=== PATIENT | female | born 2000 | race Caucasian/White ===

== ENCOUNTER → 2022-08-30 | Outpatient (REF) | LOC: M RAD 09:48 | PROVIDERS: ATTEND Internal Medicine | DX: R52 Pain, unspecified (principal) ==

== ENCOUNTER 2022-11-07 07:31 | Emergency (ER) | payer OTHER ==
[~2022-11-07] VITALS: Ht 157.5 cm; Wt 47.7 kg
[2022-11-07 09:28] VITALS: BP 117/72; TEMP 98.4; O2SAT 100
== END 2022-11-07 09:33 | disposition home or self-care (01) ==
LOC: M ED 07:31 → EDBD 07:31 → M ED 09:33
DX: T19.2XXA Foreign body in vulva and vagina, initial encounter (principal); F90.9 Attention-deficit hyperactivity disorder, unspecified type

== ENCOUNTER 2023-01-23 18:33 | Emergency (ER) | payer OTHER ==
[~2023-01-23] VITALS: Ht 157.5 cm; Wt 49.6 kg
[2023-01-23 18:34] VITALS: BP 121/66; TEMP 99; O2SAT 99
[2023-01-23 19:29] LABS: HEMATOCRIT 38.3 % (36.0-47.0); HEMOGLOBIN 12.7 g/dl (12.0-15.5); MEAN CORPUSCULAR HEMOGLOBIN 30.8 pg (27.0-33.0); MEAN CORPUSCULAR HGB CONC 33.2 g/dl (32.0-36.5); PLATELET COUNT, AUTOMATED 196 10^3/uL (150-450); RED BLOOD COUNT 4.12 10^6/uL (4.00-5.40); WHITE BLOOD COUNT 4.8 10^3/uL (4.0-10.0)
[2023-01-23 19:58] LABS: HCG, SERUM QUALITATIVE NEGATIVE (NEGATIVE)
[2023-01-23 20:01] LABS: BLOOD UREA NITROGEN 11 MG/DL (9-23); CALCIUM LEVEL 9.4 MG/DL (8.5-10.1); CARBON DIOXIDE LEVEL 30 MMOL/L (20-31); CHLORIDE LEVEL 104 MMOL/L (98-107); CREATININE FOR GFR 0.62 MG/DL (0.55-1.30); GLOMERULAR FILTRATION RATE > 60.0 (>60); GLUCOSE, FASTING 78 MG/DL (60-100); POTASSIUM SERUM 4.2 MMOL/L (3.5-5.1); SODIUM LEVEL 142 MMOL/L (136-145)
== END 2023-01-23 23:27 | disposition left against medical advice (07) ==
LOC: M ED 18:33
DX: Z53.21 Procedure and treatment not carried out due to patient leaving prior to being seen by health care provider (principal)

== ENCOUNTER 2023-02-03 12:08 | Inpatient (IN) | payer OTHER ==
[~2023-02-03] VITALS: Ht 157.5 cm; Wt 46.4 kg
[2023-02-03 13:00] LABS: HEMATOCRIT 39.7 % (36.0-47.0); HEMOGLOBIN 13.6 g/dl (12.0-15.5); MEAN CORPUSCULAR HEMOGLOBIN 31.5 pg (27.0-33.0); MEAN CORPUSCULAR HGB CONC 34.3 g/dl (32.0-36.5); MEAN CORPUSCULAR VOLUME 91.9 fl (80.0-96.0); PLATELET COUNT, AUTOMATED 221 10^3/uL (150-450); RED BLOOD COUNT 4.32 10^6/uL (4.00-5.40); WHITE BLOOD COUNT 6.9 10^3/uL (4.0-10.0)
[2023-02-03 13:20] LABS: ETHYL ALCOHOL (ETHANOL) 0.004 % (0.000-0.010)
[2023-02-03 13:22] LABS: ACETAMINOPHEN LEVEL < 2.0 UG/ML (10.0-20.0); ALBUMIN 4.6 G/DL (3.2-5.2); ALKALINE PHOSPHATASE 64 U/L (46-116); ALT/SGPT 15 U/L (7.0-40); AST/SGOT < 8 U/L (<34); BILIRUBIN,DIRECT 0.3 MG/DL (<0.4); BILIRUBIN,TOTAL 0.7 MG/DL (0.3-1.2); BLOOD UREA NITROGEN 14 MG/DL (9-23); CALCIUM LEVEL 9.7 MG/DL (8.5-10.1); CARBON DIOXIDE LEVEL 28 MMOL/L (20-31); CHLORIDE LEVEL 105 MMOL/L (98-107); CREATININE FOR GFR 0.65 MG/DL (0.55-1.30); GLOMERULAR FILTRATION RATE > 60.0 (>60); GLUCOSE, FASTING 92 MG/DL (60-100); POTASSIUM SERUM 4.3 MMOL/L (3.5-5.1); SALICYLATE LEVEL < 3.0 MG/DL (<30); SODIUM LEVEL 139 MMOL/L (136-145); TOTAL PROTEIN 7.5 G/DL (5.7-8.2)
[2023-02-03 13:24] LABS: THYROID STIMULATING HORMONE 1.182 uIU/ML (0.55-4.78)
[2023-02-03 13:26] LABS: HCG, SERUM QUALITATIVE NEGATIVE (NEGATIVE)
[2023-02-03 14:08] LABS: AMPHETAMINES LEVEL URINE NEGATIVE (NEGATIVE); BARBITURATES URINE NEGATIVE (NEGATIVE); BENZODIAZEPINES URINE NEGATIVE (NEGATIVE); COCAINE METABOLITE URINE NEGATIVE (NEGATIVE); METHADONE URINE NEGATIVE (NEGATIVE); OPIATES URINE NEGATIVE (NEGATIVE)
[2023-02-03 14:09] LABS: PHENCYCLIDINE URINE NEGATIVE (NEGATIVE)
[2023-02-03 14:10] LABS: CANNABINOIDS URINE POSITIVE (NEGATIVE)
[2023-02-04] MEDS ORDERED: HOME MED LIST COMPLETE! XX SCH (08:30)
[2023-02-04] MEDS ORDERED: ACETAMINOPHEN TAB 650MG DOSE (2X325MG) PO ONE (18:35)
[2023-02-06] MEDS ORDERED: traZODone 50 MG TAB PO PRN (13:25)
[2023-02-06] MEDS ORDERED: MOM 30ML SUSPENSION UDC PO PRN (13:25)
[2023-02-06] MEDS ORDERED: IBUPROFEN 400MG TAB PO PRN (13:25)
[2023-02-06] MEDS ORDERED: MAALOX 30 ML SUSP *UDC PO PRN (13:25)
[2023-02-06] MEDS ORDERED: ACETAMINOPHEN TAB 650MG DOSE (2X325MG) PO PRN (13:25)
[2023-02-06] MEDS ORDERED: diphenhydrAMINE 25MG CAP PO PRN (13:25)
[2023-02-06 18:00] VITALS: BP 129/89; TEMP 98.7
[2023-02-07 06:57] VITALS: BP 120/53; TEMP 99.8; O2SAT 96
[2023-02-08 06:47] VITALS: BP 106/56; TEMP 98
[2023-02-08] MEDS: DIVALPROEX 500MG *ER* TAB PO SCH ×2 (08:53→20:52)
[2023-02-08 16:14] VITALS: BP 126/70; TEMP 99.1; O2SAT 100
[2023-02-09 06:22] VITALS: BP 94/52; TEMP 98.9; O2SAT 98
[2023-02-09] MEDS: DIVALPROEX 500MG *ER* TAB PO SCH ×2 (08:31→20:14)
[2023-02-09 18:00] VITALS: BP 142/72; TEMP 98.4
[2023-02-10 05:47] VITALS: BP 97/55; TEMP 98; O2SAT 96
[2023-02-10] MEDS: DIVALPROEX 500MG *ER* TAB PO SCH ×2 (08:44→20:05)
[2023-02-10 18:00] VITALS: BP 117/87; TEMP 98.4
[2023-02-11 06:27] VITALS: BP 105/55; TEMP 98.6; O2SAT 98
[2023-02-11] MEDS: DIVALPROEX 500MG *ER* TAB PO SCH ×2 (08:10→20:07)
[2023-02-11 16:20] VITALS: BP 110/56; TEMP 98.3; O2SAT 100
[2023-02-12 07:02] VITALS: BP_SYST 137; BP_SYST 95; BP_DIAS 55; BP_DIAS 87; TEMP 97.8; TEMP 98.2; O2SAT 95; O2SAT 96
[2023-02-12] MEDS: DIVALPROEX 500MG *ER* TAB PO SCH ×2 (08:11→20:30)
[2023-02-12 16:48] VITALS: BP 108/59; TEMP 98.9; O2SAT 99
[2023-02-12] MEDS ORDERED: ONDANSETRON 4MG ORAL DISINTEGRATING TAB PO ONE (21:30)
[2023-02-13 06:24] VITALS: BP 108/56; TEMP 99; O2SAT 96
[2023-02-13] MEDS: DIVALPROEX 500MG *ER* TAB PO SCH ×2 (08:41→20:23)
[2023-02-13] MEDS ORDERED: ONDANSETRON 4MG TAB PO PRN (11:25)
[2023-02-13 16:29] VITALS: BP 116/66; TEMP 98.6; O2SAT 98
[2023-02-14 06:13] VITALS: BP 127/62; TEMP 99.1; O2SAT 99
[2023-02-14] MEDS: DIVALPROEX 500MG *ER* TAB PO SCH (08:23)
[2023-02-14] MEDS ORDERED: ONDA-83 PO (10:22)
[2023-02-14] MEDS ORDERED: DEPA500T2 PO (10:22)
== END 2023-02-14 11:30 | disposition home or self-care (01) | DRG 885 ==
LOC: M ED 12:08 → M ED INP 02-06 13:25 → M PSY 02-06 14:40
PROVIDERS: ADMIT Student in an Organized Health Care Education/Training Program; ATTEND Student in an Organized Health Care Education/Training Program
DX: F31.9 Bipolar disorder, unspecified (principal); R45.851 Suicidal ideations; F90.9 Attention-deficit hyperactivity disorder, unspecified type; F41.1 Generalized anxiety disorder; F60.3 Borderline personality disorder; F60.7 Dependent personality disorder; Z62.810 Personal history of physical and sexual abuse in childhood; R63.4 Abnormal weight loss

== ENCOUNTER → 2023-08-29 | Outpatient (CLI) | payer OTHER ==
[~2023-08-29] MED LIST: DEPA500T2 PO; ONDA-83 PO
[2023-08-29 13:30] LABS: HEMATOCRIT 31.6 % (36.0-47.0); MEAN CORPUSCULAR HEMOGLOBIN 32.2 pg (27.0-33.0); MEAN CORPUSCULAR HGB CONC 34.8 g/dl (32.0-36.5); MEAN CORPUSCULAR VOLUME 92.4 fl (80.0-96.0); PLATELET COUNT, AUTOMATED 175 10^3/uL (150-450); RED BLOOD COUNT 3.42 10^6/uL (4.00-5.40); WHITE BLOOD COUNT 5.3 10^3/uL (4.0-10.0)
[2023-08-29 14:03] LABS: HIV 1&2 SCREEN NEGATIVE (NEGATIVE)
[2023-08-29 14:11] LABS: HEPATITIS C VIRUS ABY INDEX < 0.02 INDEX (<0.8)
== END ==
LOC: M PLALAB 09:48
PROVIDERS: ATTEND Advanced Practice Midwife
DX: Z34.01 Encounter for supervision of normal first pregnancy, first trimester (principal)

== ENCOUNTER → 2023-09-23 | Outpatient (REF) | payer OTHER ==
[2023-09-23 17:29] LABS: GC DNA AMPLIFICATION NEGATIVE (NEGATIVE)
== END ==
LOC: M SFHCWAGY 14:59
PROVIDERS: ATTEND Advanced Practice Midwife
DX: Z34.01 Encounter for supervision of normal first pregnancy, first trimester (principal)

== ENCOUNTER → 2023-12-06 | Outpatient (CLI) | payer OTHER ==
[2023-12-06 13:56] LABS: HEMATOCRIT 36.3 % (36.0-47.0); MEAN CORPUSCULAR HEMOGLOBIN 32.2 pg (27.0-33.0); MEAN CORPUSCULAR HGB CONC 33.1 g/dl (32.0-36.5); MEAN CORPUSCULAR VOLUME 97.3 fl (80.0-96.0); PLATELET COUNT, AUTOMATED 137 10^3/uL (150-450); RED BLOOD COUNT 3.73 10^6/uL (4.00-5.40); WHITE BLOOD COUNT 6.4 10^3/uL (4.0-10.0)
[2023-12-06 15:15] LABS: GC DNA AMPLIFICATION NEGATIVE (NEGATIVE)
== END ==
LOC: M PLALAB 08:31
PROVIDERS: ATTEND Obstetrics & Gynecology
DX: Z34.92 Encounter for supervision of normal pregnancy, unspecified, second trimester (principal); Z36.89 Encounter for other specified antenatal screening; Z3A.00 Weeks of gestation of pregnancy not specified

== ENCOUNTER → 2024-02-18 | Outpatient (CLI) | payer OTHER ==
[2024-02-18 19:30] LABS: HEMATOCRIT 34.7 % (36.0-47.0); HEMOGLOBIN 11.6 g/dl (12.0-15.5); MEAN CORPUSCULAR HEMOGLOBIN 31.8 pg (27.0-33.0); MEAN CORPUSCULAR HGB CONC 33.4 g/dl (32.0-36.5); MEAN CORPUSCULAR VOLUME 95.1 fl (80.0-96.0); PLATELET COUNT, AUTOMATED 145 10^3/uL (150-450); RED BLOOD COUNT 3.65 10^6/uL (4.00-5.40); WHITE BLOOD COUNT 7.5 10^3/uL (4.0-10.0)
== END ==
LOC: M PLALAB 15:33
PROVIDERS: ATTEND Advanced Practice Midwife
DX: O99.13 Other diseases of the blood and blood-forming organs and certain disorders involving the immune mechanism complicating the puerperium (principal); D69.6 Thrombocytopenia, unspecified; Z36.85 Encounter for antenatal screening for Streptococcus B; Z3A.00 Weeks of gestation of pregnancy not specified

== ENCOUNTER 2024-08-05 15:08 | Emergency (ER) | payer OTHER ==
[~2024-08-05] VITALS: Ht 157.5 cm; Wt 46.0 kg
[2024-08-05 15:14] VITALS: BP 120/63; TEMP 98; O2SAT 97
== END 2024-08-05 17:36 | disposition left against medical advice (07) ==
LOC: M ED 15:08
DX: Z53.21 Procedure and treatment not carried out due to patient leaving prior to being seen by health care provider (principal)